=== PATIENT | male | born 1965 | race Two or more races ===

== ENCOUNTER → 2016-05-22 | Day surgery (SDC) | payer OTHER ==
[~2016-05-22] MED LIST: ATORVASTATIN CA20 MG PO; FENOFIBRATE160 MG PO; SERTRALINE HCL50 MG PO
--- NOTE | ~2016-05-22 | OR ---
Unit #: [id number] #: [id number] Patient: DAE FOSTER [id number] [address] [id number] MR#: [id number] NAME: DAE FOSTER ROOM: Date of Procedure: 05/22/2016 Admission Date: 05/22/2016 Surgeon: Britton Parks M.D. : 1965 Attending Physician: Britton Parks M.D. OPERATIVE REPORT PREOPERATIVE DIAGNOSIS Screening colonoscopy. POSTOPERATIVE DIAGNOSIS Screening colonoscopy. PROCEDURES PERFORMED 1. Colonoscopy to cecum. 2. Polypectomy at 10 cm with electrocautery snare. ANESTHESIA Monitored anesthesia care. FINDINGS The patient was found to have mild internal hemorrhoids. A 5-mm polyp was excised with good hemostasis at 10 cm and sent to Pathology. SPECIMENS Sent to Pathology. COMPLICATIONS None apparent. CONDITION The patient tolerated the procedure well. INDICATIONS FOR PROCEDURE The patient is a 50-year-old male. He presents at this time for screening colonoscopy. DESCRIPTION OF PROCEDURE After obtaining informed consent through his son who was his supervisor telephone answering service, the patient was brought to the endoscopy suite and after adequate monitored anesthesia care, had the colonoscope placed through the anus and slowly advanced to the level of the cecum without difficulty with the lumen always in view. The cecum was normal as was the ileocecal valve. The ascending colon was normal as was the hepatic flexure, transverse colon, splenic flexure, descending colon, sigmoid colon, and upper rectum. At 10 cm, a small 5-mm polyp was found. It was excised completely with electrocautery snare with good hemostasis and sent to Pathology. On retroflexing in the rectum to the anorectal junction, there was no abnormality seen other than mild internal hemorrhoids. The scope was Unit #: [id number] #: [id number] Patient: DAE FOSTER removed without difficulty. On digital examination, there was good sphincter tone. No masses palpable. The patient went from the endoscopy suite to the recovery area in stable condition. RECOMMENDATIONS High-fiber diet, lots of liquids, tucks or wipes p.r.n. Call Wednesday for pathology report. Dictated by... Yemi Lancaster/mike TD: 05/23/2016 01:13 JOB #: [id number] CC: [facility] Dae Nolan M.D. OPERATIVE REPORT X Britton Parks MD PROCEDURE OPERATIVE NOTE
== END | disposition home or self-care (01) ==
LOC: COPS 05:47
DX: Z12.11 Encounter for screening for malignant neoplasm of colon (principal); K63.5 Polyp of colon; K64.8 Other hemorrhoids; Z80.0 Family history of malignant neoplasm of digestive organs; E78.5 Hyperlipidemia, unspecified; F41.9 Anxiety disorder, unspecified; R06.02 Shortness of breath; M54.9 Dorsalgia, unspecified; Z79.899 Other long term (current) drug therapy; F17.200 Nicotine dependence, unspecified, uncomplicated
CPT/HCPCS: 88305; J2250